=== PATIENT | male | born 1960 | race Hispanic/Latino ===

== ENCOUNTER 2017-09-02 23:48 | Emergency (ER) | payer MEDICARE, OTHER ==
[2017-09-03 00:12] VITALS: BMI 41.1
--- NOTE | 2017-09-03 00:53 | ED PDOC ---
Arrival/HPI - General Historian: Patient, Other (Detention staff) - History of Present Illness Time/Duration: Other (11:15am) Quality: Unable to Describe Severity Level: 1 <Belinda Sam - Last Filed: 09/03/17 02:44> <Sukhjinder Parmar - Last Filed: 09/03/17 02:46> - General Chief Complaint: Upper Extremity Problem/Injury Time Seen by Provider: 09/03/17 00:39 - History of Present Illness Narrative History of Present Illness (Text): 09/03/17 00:40 57 year old male who presents to the Emergency department sent from Detention status post mechanical fall at 23:15. Patient states while in the bathroom, he tripped and fell backwards, landing on his right arm. Patient now complaining of pain to his right upper arm. Patient denies any loss of consciousness or headache but [facility] staff went in to bathroom and noted patient was bleeding from his forehead. Staff state all they could find was a very small scrape to the mid forehead. Patient states pain is currently better now and reports he is able to fully move his arm. (Belinda Sam) Past Medical History - Provider Review Nursing Documentation Reviewed: Yes - Travel History Have you recently traveled outside [place] w/in the past 3 mons?: No - Tetanus Immunization Tetanus Immunization: Unknown - Psychiatric Hx Substance Use: No <Belinda Sam - Last Filed: 09/03/17 02:44> Family/Social History - Physician Review Nursing Documentation Reviewed: Yes Family/Social History: Unknown Family HX Smoking Status: Current Some Days Smoker Hx Alcohol Use: No Hx Substance Use: No <Belinda Sam - Last Filed: 09/03/17 02:44> Allergies/Home Meds <Belinda Sam - Last Filed: 09/03/17 02:44> <Sukhjinder Parmar - Last Filed: 09/03/17 02:46> Allergies/Adverse Reactions: Allergies seasonal Allergy (Uncoded 09/03/17 00:40) CONGESTION Review of Systems - Physician Review All systems were reviewed & negative as marked: Yes - Review of Systems Constitutional: Normal. absent: Fevers Eyes: absent: Vision Changes, Photophobia Respiratory: Normal. absent: SOB, Cough Cardiovascular: absent: Chest Pain, Syncope Gastrointestinal: Normal. absent: Abdominal Pain, Diarrhea, Nausea, Vomiting Genitourinary Male: Normal. absent: Dysuria, Frequency, Hematuria Musculoskeletal: Arthralgias (+right shoulder pain). absent: Back Pain, Neck Pain Skin: Other (+forehead abrasion) Neurological: Normal. absent: Headache, Dizziness <Belinda Sam T - Last Filed: 09/03/17 02:44> Physical Exam Vital Signs Reviewed: Yes Temperature: Afebrile Blood Pressure: Normal Pulse: Regular Respiratory Rate: Normal Appearance: Positive for: Well-Appearing, Non-Toxic, Comfortable Pain Distress: None Mental Status: Positive for: Alert and Oriented X 3 - Systems Exam Head: Present: Normocephalic, Abrasion (Mid forehead abrasion, just superior to glabella) Pupils: Present: PERRL Extroacular Muscles: Present: EOMI Conjunctiva: Present: Normal Mouth: Present: Moist Mucous Membranes Neck: Present: Normal Range of Motion (Full ROM). No: Meningeal Signs, MIDLINE TENDERNESS, Paraspinal Tenderness Respiratory/Chest: Present: Clear to Auscultation, Good Air Exchange. No: Respiratory Distress, Accessory Muscle Use Cardiovascular: Present: Regular Rate and Rhythm, Normal S1, S2. No: Murmurs Abdomen: No: Tenderness, Distention, Peritoneal Signs, Rebound, Guarding Back: Present: Normal Inspection, Other (no ecchymosis, no edema). No: CVA Tenderness, Midline Tenderness, Paraspinal Tenderness Upper Extremity: Present: Normal ROM (Full ROM), NORMAL PULSES, Tenderness ( Tenderness to lateral aspect of right shoulder and right humerus/upper arm), Neurovascularly Intact (Sensation and distal pulses intact), Capillary Refill < 2s. No: Cyanosis, Edema, Swelling, Erythema, Temperature Abnormalties, Deformity Lower Extremity: Present: Normal Inspection, NORMAL PULSES, Normal ROM, Neurovascularly Intact, Capillary Refill < 2 s. No: Edema, CALF TENDERNESS, Cyanosis, Tenderness, Swelling, Erythema, Deformity, Temperature Abnormalties Neurological: Present: GCS=15, Speech Normal, Motor Func Grossly Intact, Normal Sensory Function, Gait Normal Skin: Present: Warm, Dry, Normal Color. No: Rashes Psychiatric: Present: Alert <Belinda Sam T - Last Filed: 09/03/17 02:44> Vital Signs Temp Pulse Resp BP Pulse Ox 09/03/17 02:26 98.4 F 96 H 18 136/84 99 Medical Decision Making Re-evaluation Time: 02:31 Reassessment Condition: Re-examined, Improved <Belinda Sam - Last Filed: 09/03/17 02:44> <Sukhjinder Parmar - Last Filed: 09/03/17 02:46> ED Course and Treatment: 09/03/17 00:40 Impression: 57 year old male presents s/p mechanical fall with forehead abrasion and right shoulder pain Plan: -- CT Head w/o contrast -- XR Right Shoulder - no fracture -- XR Right Humerus - no fracture -- XR Right Elbow- no fracture -- Reassess and disposition Progress Notes: Pt refused injection for pain; motrin given po tetanus updated. head ct; FINDINGS: Brain: Unremarkable. No hemorrhage. No significant white matter disease. No edema. Ventricles: Unremarkable. No ventriculomegaly. Bones/joints: Unremarkable. No acute fracture. Soft tissues: Unremarkable. Sinuses: Unremarkable as visualized. No acute sinusitis. Mastoid air cells: Unremarkable as visualized. No mastoid effusion. IMPRESSION: Normal head/brain CT I discussed all results in depth with the patient and the [facility] intern. Patient will be discharged to the [facility] to follow-up with primary care physician and orthopedist within the next 2 days. I've advised immediate return if symptoms worsen persist or if new concerning symptoms develop Patient verbalizes understanding of discharge instructions and need for immediate followup. all aspects of this case were discussed the attending of record. Impression: Head injury, arm pain, abrasion forehead Motrin every 6 hours as needed for pain Follow-up the primary care physician within the next 2 days Follow-up the orthopedist within the next 2 days Return if symptoms worsen persist or if new concerning symptoms develop (Belinda Sam) - RAD Interpretation Radiology Orders: 09/03/17 00:41 HEAD W/O CONTRAST [CT] Stat ELBOW RIGHT 3 VIEWS ROUTINE [RAD] Stat HUMERUS RIGHT [RAD] Stat SHOULDER RIGHT [RAD] Stat - Medication Orders Current Medication Orders: Discontinued Medications Ibuprofen (Motrin Tab) 600 mg PO STAT STA Stop: 09/03/17 00:52 Last Admin: 09/03/17 02:33 Dose: 600 mg MAR Pain/Vitals Document 09/03/17 02:33 JACKI (Rec: 09/03/17 02:33 JACKI [id number]) Pain Reassessment Is This A Pain ReAssessment? No Tetanus/Reduced Diphtheria/Acell Pertussis (Boostrix Vaccine Inj) 0.5 ml IM .ONCE ONE Stop: 09/03/17 02:24 Last Admin: 09/03/17 02:33 Dose: 0.5 ml - Scribe Statement The provider has reviewed the documentation as recorded by the Scribe <Belinda Sam - Last Filed: 09/03/17 02:44> - PA / [employer] / Resident Statement / has reviewed & agrees with the documentation as recorded. MD/ has examined the patient and agrees with the treatment plan. <Sukhjinder Parmar - Last Filed: 09/03/17 02:46> - Scribe Statement Lucrecia Benson Provider Scribe Attestation: All medical record entries made by the Scribe were at my direction and personally dictated by me. I have reviewed the chart and agree that the record accurately reflects my personal performance of the history, physical exam, medical decision making, and the department course for this patient. I have also personally directed, reviewed, and agree with the discharge instructions and disposition. (Belinda Sam) Disposition/Present on Arrival - Present on Arrival Any Indicators Present on Arrival: No History of DVT/PE: No History of Uncontrolled Diabetes: No Urinary Catheter: No History of Decub. Ulcer: No History Surgical Site Infection Following: None - Disposition Have Diagnosis and Disposition been Completed?: Yes Disposition Time: 02:29 Patient Plan: Discharge <Belinda Sam - Last Filed: 09/03/17 02:44> <Sukhjinder Parmar - Last Filed: 09/03/17 02:46> - Disposition Diagnosis: Head injury, Shoulder pain, Arm pain Disposition: HOME/ ROUTINE Condition: GOOD Discharge Instructions (ExitCare): Muscle and Bone Pain (DC), Minor Head Injury , Shoulder Pain (DC) Additional Instructions: Motrin every 6 hours as needed for pain Follow-up the primary care physician within the next 2 days Follow-up the orthopedist within the next 2 days Return if symptoms worsen persist or if new concerning symptoms develop Prescriptions: Ibuprofen [Motrin] 600 mg PO Q6H PRN #20 tab PRN Reason: pain/fever reduction Referrals: Wisam Mobley MD [Staff Provider] - Follow up with primary Patrick Brown III, MD [Medical Doctor] - Follow up with primary Forms: [employer] ([place]), WORK NOTE
[2017-09-03] MEDS ORDERED: TDAP Vaccine 0.5 mL Syr IM ONE (02:23)
[2017-09-03 02:27] VITALS: RESP 18; TEMP 98.4; O2SAT 99
[2017-09-03 03:05] VITALS: BP 127/74; PULSE 99
--- NOTE | 2017-09-03 07:49 | CT ---
PROCEDURE: CT HEAD WITHOUT CONTRAST. HISTORY: fall. head injury. COMPARISON: None available. TECHNIQUE: Axial computed tomography images were obtained through the head/brain without intravenous contrast. Radiation dose: Total exam DLP = 966.48 mGy-cm. This CT exam was performed using one or more of the following dose reduction techniques: Automated exposure control, adjustment of the mA and/or kV according to patient size, and/or use of iterative reconstruction technique. FINDINGS: HEMORRHAGE: No intracranial hemorrhage. BRAIN: No mass effect or edema. No atrophy or chronic microvascular ischemic changes. VENTRICLES: Unremarkable. No hydrocephalus. CALVARIUM: Unremarkable. PARANASAL SINUSES: Unremarkable as visualized. No significant inflammatory changes. MASTOID AIR CELLS: Unremarkable as visualized. No inflammatory changes. OTHER FINDINGS: None. IMPRESSION: No acute intracranial abnormalities. No significant findings to account for the clinical presentation. Concordant results (preliminary interpretation) provided by [facility]. Procedure Completed: 01:20 Preliminary ([facility]) Report: Dictated and Authenticated: 02:25 Final Interpretation: 07:47 September 03, 2017.
--- NOTE | 2017-09-03 10:31 | RAD ---
PROCEDURE: Radiographs of the right elbow. HISTORY: Trauma/fall. COMPARISON: No prior. FINDINGS: BONES: Normal. No fracture. JOINTS: Normal. No osteoarthritis. SOFT TISSUES: Normal. JOINT EFFUSION: None. OTHER FINDINGS: None. IMPRESSION: No acute findings related to/accounting for the clinical presentation. Concordant results with the preliminary interpretation rendered by the emergency department physician procedure.
--- NOTE | 2017-09-03 10:50 | RAD ---
PROCEDURE: Radiographs of the right humerus. HISTORY: fall, pain COMPARISON: None. FINDINGS: BONES: Normal. No fracture or focal lesion. SOFT TISSUES: Normal. OTHER FINDINGS: None. IMPRESSION: Normal radiographs of right humerus.
--- NOTE | 2017-09-03 11:24 | RAD ---
PROCEDURE: Radiographs of the Right Shoulder HISTORY: Trauma/fall COMPARISON: No prior. FINDINGS: BONES: Normal. No fracture. JOINTS: Normal. Glenohumeral and acromioclavicular joints preserved. No osteoarthritis. SOFT TISSUES: Normal. OTHER FINDINGS: None. IMPRESSION: No acute findings related to/accounting for the clinical presentation. Concordant results with the preliminary interpretation rendered by the emergency department physician procedure.
== END 2017-09-03 03:04 | disposition home or self-care (01) ==
LOC: ED 23:48
DX: S09.90XA Unspecified injury of head, initial encounter (principal); W01.0XXA Fall on same level from slipping, tripping and stumbling without subsequent striking against object, initial encounter; Y92.091 Bathroom in other non-institutional residence as the place of occurrence of the external cause; M25.511 Pain in right shoulder; Z23 Encounter for immunization